=== PATIENT | male | born 1980 | race Caucasian/White ===

== ENCOUNTER 2016-06-28 04:37 | Inpatient (IN) | payer MEDICAID ==
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
--- NOTE | ~2016-06-28 | PN ---
Unit #: [id number] #: [id number] Patient: DEMI NGUYEN [id number] [facility] [address] [place] [address] [id number] I MR#: [id number] NAME: DEMI NGUYEN. ROOM: P122 Age: 36 Sex: M Admission Date: 06/28/2016 : 1980 Attending Physician: Shahzad Matos M.D. Admitting Physician: Shahzad Matos M.D. Primary Care Physician: Generic Doctor Not In System [facility] PROGRESS NOTES DATE OF SERVICE: 06/29/2016 DISCUSSION Mr. Greco is a 36-year-old male, seen on 06/29/2016. The patient interviewed, chart reviewed, and obtained information from nursing staff. The patient continues to be guarded, delusional, and paranoid. The patient reports that my mission here is over. The patient reports that he is from [place]. The patient showed a scar and then said this is official scar. The patient continues to have delusion, paranoia, mood lability, and psychotic symptoms. The patient's vital signs are stable; temperature 97.3, heart rate 94, respiratory rate 18, and blood pressure 118/54. REVIEW OF SYSTEMS Complete review of systems unremarkable. MENTAL STATUS EXAMINATION General appearance, the patient dressed casually. Attention span and concentration, poor. Oriented in place. Mood and affect, labile. Speech, disorganized. Thought process; circumstantial, guarded, paranoid, grandiose, and delusions. Denied any thoughts of harming self or others, but mood lability. Recent and remote memory, poor. Insight and judgment, poor. DIAGNOSES 1. Psychosis, not otherwise specified. 2. Bipolar mood disorder, not otherwise specified. 3. Rule out schizoaffective disorder, bipolar type, rule out schizophrenia. ASSESSMENT AND PLAN Advised to continue with current medication and therapeutic protocol. We will monitor response to medication and make further adjustment of medication. Recommending at this time to increase Zyprexa to 10 mg b.i.d., Thorazine 50 mg t.i.d., and Ativan 1 mg t.i.d. If needed, consider further adjustment of medication. Dictated by... Shahzad Matos M.D. SZC/modl Unit #: [id number] #: [id number] Patient: DEMI NGUYEN Sumeet TD: 06/29/2016 17:51 JOB #: [id number] [facility] PROGRESS NOTES X Shahzad Matos MD PROGRESS NOTE
--- NOTE | ~2016-06-28 | PN ---
Unit #: [id number] #: [id number] Patient: DEMI NGUYEN [id number] [facility] [address] [place] [address] [id number] I MR#: [id number] NAME: DEMI NGUYEN. ROOM: P122 Age: 36 Sex: M Admission Date: 06/28/2016 : 1980 Attending Physician: Shahzad Matos M.D. Admitting Physician: Shahzad Matos M.D. Primary Care Physician: Generic Doctor Not In System [facility] PROGRESS NOTES DATE OF SERVICE 07/08/2016 DISCUSSION Mr. Greco is a 36-year-old male. The patient interviewed, chart reviewed. Obtained information from nursing staff. The patient was compliant, cooperative. Mood sad, dysphoric, flat affect, guarded. The patient continues to show delusion, paranoia, and mood lability, but seems to be responding well with a combination of Zyprexa and Saphris. The patient was able to sleep better last night. Compliant with medication, but still having grandiose delusions, loose association, disorganized behavior. Needing redirection. The patient reported being in [place] and wanting staff to call the police, going to give MD (1) ___ so he will not be charged. The patient still having disorganized behavior, thought process. Complete Review of Systems: Unremarkable. MENTAL STATUS EXAMINATION General Appearance: The patient well built, casually dressed. Attention span, concentration: Poor. Oriented in place and person. Mood and affect labile. Speech: Rapid. Thought process: Circumstantial, guarded. Denied any thoughts of harming self or others, delusions, paranoid, disorganized behavior, disorganized thought process. Recent and remote memory: Poor. Insight and judgment: Poor. DIAGNOSES 1. Psychosis not otherwise specified. 2. Schizophrenia, chronic, paranoid type. ASSESSMENT/PLAN Advised to continue with current medication and therapeutic protocol. We will monitor response to medication and make further adjustment of medication. Dictated by... Clyde Martins/ej TD: 07/09/2016 10:14 Unit #: [id number] #: [id number] Patient: DEMI NGUYEN JOB #: [id number] [facility] PROGRESS NOTES Page 1 of 1 X Shahzad Matos MD PROGRESS NOTE
--- NOTE | ~2016-06-28 | PN ---
Unit #: [id number] #: [id number] Patient: DEMI NGUYEN [id number] [facility] [address] [place] [address] [id number] I MR#: [id number] NAME: DEMI NGUYEN. ROOM: P122 Age: 36 Sex: M Admission Date: 06/28/2016 : 1980 Attending Physician: Shahzad Matos M.D. Admitting Physician: Shahzad Matos M.D. Primary Care Physician: Generic Doctor Not In System [facility] PROGRESS NOTES DATE OF SERVICE: 07/01/2016 DISCUSSION Mr. Greco is a 36-year-old male, seen on 07/01/2016. The patient interviewed, chart reviewed, and obtained information from nursing staff. The patient was somewhat hyperactive and impulsive. Rapid thought process. The patient was pacing in the hallway, guarded, and paranoid. Continues to have delusion and paranoia. The patient has poor insight and poor judgment. Rowe, paranoid, racing thought process, argumentative, impulsive, but compliant with medication. The patient continues to have grandiose delusions. Complete review of systems unremarkable. MENTAL STATUS EXAMINATION General appearance, the patient dressed casually. Attention span and concentration were poor. Oriented in place and person. Mood and affect, labile. Speech, rapid. Thought process; circumstantial, guarded. The patient denied any thoughts of harming self or others, but guarded, paranoid. Recent and remote memory, poor. Insight and judgment, poor. DIAGNOSES 1. Psychosis, not otherwise specified. 2. Bipolar mood disorder, not otherwise specified. 3. Rule out schizoaffective disorder, bipolar type. ASSESSMENT AND PLAN Advised to continue with current medication and therapeutic protocol. We will monitor response to medication and make further adjustment of medication if needed. Dictated by... Clyde Martins/orlando TD: 07/01/2016 18:05 JOB #: [id number] Unit #: [id number] #: [id number] Patient: DEMI NGUYEN PROGRESS NOTES X Shahzad Matos MD PROGRESS NOTE
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
--- NOTE | ~2016-06-28 | PN ---
Unit #: [id number] #: [id number] Patient: ANGUS NGUYEN [id number] [facility] [address] [place] [address] [id number] I MR#: [id number] NAME: ANGUS NGUYEN. ROOM: P122 Age: 36 Sex: M Admission Date: 06/28/2016 : 1980 Attending Physician: Shahzad Matos M.D. Admitting Physician: Shahzad Matos M.D. Primary Care Physician: Generic Doctor Not In System [facility] PROGRESS NOTES DATE 07/10/2016 DISCUSSION Mr. Angus Nguyen is a 36-year-old male, seen on 07/10/2016. The patient interviewed, chart reviewed, and obtained information from the nursing staff. The patient continues to have delusions, paranoia, mood lability, grandiose delusions. The patient became mad, angry, upset this morning, agitated, and started pacing in the hallway. The patient threatened to call the police. 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 The patient's behavior was disruptive, impulsive, aggressive, but otherwise, mostly he is compliant and cooperative. REVIEW OF SYSTEMS Complete review of systems unremarkable. MENTAL STATUS EXAMINATION General appearance: Patient dressed casually. Attention span and concentration, poor. Orientation to place. Mood and affect, labile. Speech, rapid. Thought process, circumstantial, guarded. The patient denied any thoughts of harming self or others but guarded, paranoid, delusional, grandiose delusions. Recent and remote memory, poor. Insight and judgment, poor. DIAGNOSIS Schizophrenia, chronic, paranoid type. ASSESSMENT/PLAN Advised to continue with the current medication combination with a plan to consider transition to outpatient program, if needed consider further adjustment of medication. Dictated by... Clyde Martins/laevlle TD: 07/11/2016 10:36 JOB #: [id number] Unit #: [id number] #: [id number] Patient: ANGUS NGUYEN [facility] PROGRESS NOTES Page 1 of 1 X Shahzad Matos MD PROGRESS NOTE
--- NOTE | ~2016-06-28 | PN ---
Unit #: [id number] #: [id number] Patient: ANGUS NGUYEN [id number] [facility] [address] [place] [address] [id number] I MR#: [id number] NAME: ANGUS NGUYEN. ROOM: P122 Age: 36 Sex: M Admission Date: 06/28/2016 : 1980 Attending Physician: Shahzad Matos M.D. Admitting Physician: Shahzad Matos M.D. Primary Care Physician: Generic Doctor Not In System [facility] PROGRESS NOTES DATE OF SERVICE 07/02/2016 DISCUSSION Angus Nguyen is a 36-year-old male seen on 07/02/2016. The patient interviewed, chart reviewed. Obtained information from nursing staff. The patient continues to have delusional thinking, grandiose ideation, paranoia, mood lability. Compliant with medication. No side effects from medication. The patient needed a p.r.n. medication for agitation. The patient continues to have the above-mentioned symptoms. Complete Review of Systems: Unremarkable. MENTAL STATUS EXAMINATION General Appearance: The patient dressed casually. Attention span, concentration: Poor. Orientation in place and person. Mood and affect labile. Speech: Rapid. Thought process: Circumstantial, guarded, paranoid. Delusional grandiose ideation. Recent and remote memory: Poor. Insight and judgment: Poor. DIAGNOSES 1. Psychosis not otherwise specified. 2. Bipolar mood disorder not otherwise specified. ASSESSMENT/PLAN Advised to continue with current medication and therapeutic protocol. We will monitor response to medication and make further adjustment of medication. Dictated by... Clyde Martins/ej TD: 07/03/2016 12:27 JOB #: [id number] Unit #: [id number] #: [id number] Patient: ANGUS NGUYEN [facility] PROGRESS NOTES X Shahzad Matos MD PROGRESS NOTE
--- NOTE | ~2016-06-28 | PN ---
Unit #: [id number] #: [id number] Patient: ANGUS NGUYEN [id number] [facility] [address] [place] [address] [id number] I MR#: [id number] NAME: ANGUS NGUYEN. ROOM: P122 Age: 36 Sex: M Admission Date: 06/28/2016 : 1980 Attending Physician: Shahzad Matos M.D. Admitting Physician: Shahzad Matos M.D. Primary Care Physician: Generic Doctor Not In System [facility] PROGRESS NOTES DATE 07/07/2016 DISCUSSION Angus Nguyen is a 36-year-old male seen on 07/07/2016. The patient interviewed, chart reviewed. Obtained information from nursing staff. The patient's behavior continues to be bizarre, guarded, paranoid, delusional. The patient still having paranoid delusions, mood lability, paranoia, agitation. The patient continued to perseverate on involvement with the [employer] and needing to call 911. The patient reported that he is on (1)___ operation. Complete review of systems unremarkable. MENTAL STATUS EXAMINATION General appearance, the patient dressed casually. Attention span and concentration poor. Oriented to place and person. Mood and affect was labile. Speech rapid. Thought process circumstantial, guarded, paranoid, delusional. Recent and remote memory poor. Insight and judgement poor. DIAGNOSES Schizophrenia chronic paranoid type. ASSESSMENT/PLAN Recommending at this time after reviewing all the information from his previous record that the patient responded well with the combination of Zyprexa, Klonopin and Saphris. Therefore the patient was started on Saphris sublingual 10 mg b.i.d., desyrel 200 mg at bedtime p.r.n. for sleep, Klonopin 1 mg three times day for anxiety and Zyprexa 15 mg twice daily. The patient is also on Thorazine with a plan to take him off from this medication. Continue with the inpatient programing. Monitor for side effects. Dictated by... Clyde Martins/rosanna TD: 07/08/2016 23:48 JOB #: [id number] Unit #: [id number] #: [id number] Patient: PATRICKANGUS PROGRESS NOTES Page 1 of 1 X Shahzad Matos MD PROGRESS NOTE
--- NOTE | ~2016-06-28 | PN ---
Unit #: [id number] #: [id number] Patient: ANGUS NGUYEN [id number] [facility] [address] [place] [address] [id number] I MR#: [id number] NAME: ANGUS NGUYEN. ROOM: P122 Age: 36 Sex: M Admission Date: 06/28/2016 : 1980 Attending Physician: Shahzad Matos M.D. Admitting Physician: Shahzad Matos M.D. Primary Care Physician: Generic Doctor Not In System [facility] PROGRESS NOTES DATE 07/03/2016 DISCUSSION Angus Nguyen is a 36-year-old male. Patient interviewed. Chart reviewed. Obtained information from nursing staff. Patient continues to be pacing the hallway. Also, talked to patient's dad on the phone and discussed about treatment plan. Patient was tried on different medication with the failure. Patient has been refusing to take antipsychotic. Patient was talking to himself, carry out conversation, guarded, paranoid, delusional, mood lability. Attending to internal stimuli. Complete review of system unremarkable. MENTAL STATUS EXAMINATION General appearance, patient dressed casually. Attention span, concentration poor. Oriented in place and person. Mood and affect was labile. Speech rapid. Thought process circumstantial, guarded, paranoid, delusional, mood lability. Recent and remote memory poor. Insight and judgement poor. DIAGNOSES 1. Psychosis NOS. 2. Bipolar mood disorder NOS. 3. Schizoaffective disorder. 4. Rule out schizophrenia. ASSESSMENT/PLAN Continue with the current medication and therapeutic protocol. Will monitor response to medication and make further adjustment of medication. Patient's medication recently increased. Also, consider injectable medication. Dictated by... Clyde Martins/boo TD: 07/04/2016 18:21 JOB #: [id number] Unit #: [id number] #: [id number] Patient: ANGUS NGUYEN [facility] PROGRESS NOTES X Shahzad Matos MD PROGRESS NOTE
--- NOTE | ~2016-06-28 | PN ---
Unit #: [id number] #: [id number] Patient: ANGUS NGUYEN [id number] [facility] [address] [place] [address] [id number] I MR#: [id number] NAME: ANGUS NGUYEN. ROOM: P122 Age: 36 Sex: M Admission Date: 06/28/2016 : 1980 Attending Physician: Shahzad Matos M.D. Admitting Physician: Shahzad Matos M.D. Primary Care Physician: Generic Doctor Not In System [facility] PROGRESS NOTES DATE OF SERVICE: 07/06/2016 DISCUSSION Mr. Angus Nguyen is a 36-year-old male, seen on 07/06/2016. The patient was able to sleep better, but still without behavior, grandiose delusion, pressured speech, paranoia, disorganized behavior. The patient continues to believe working for [employer], multiple grandiose delusions, attending to internal stimuli, pacing in the hallway, talking to himself, became upset when telephone privileges were taken away as the patient was calling different facilities, calling 911. Mood was irritable and angry. Complete review of systems is unremarkable. MENTAL STATUS EXAMINATION General appearance, the patient dressed casually. Attention span and concentration, poor. Oriented in place and person. Mood and affect were labile. Speech; pressured, rapid. Thought process, circumstantial. The patient denied any thoughts of harming self or others, but guarded, paranoid. Behavior as mentioned above. Disorganized behavior. Disorganized thought process. Recent and remote memory, poor. Insight and judgment, poor. DIAGNOSIS Schizophrenia, chronic paranoid type. ASSESSMENT AND PLAN Advised to continue with current medication and therapeutic protocol. We will monitor response to medication and make further adjustment of medication. Dictated by... Clyde Martins/orlando TD: 07/07/2016 11:57 JOB #: [id number] Unit #: [id number] #: [id number] Patient: ANGUS NGUYEN [facility] PROGRESS NOTES X Shahzad Matos MD PROGRESS NOTE
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
--- NOTE | ~2016-06-28 | PA ---
Unit #: [id number] #: [id number] Patient: ANGUS NGUYEN [id number] [facility] [address] [place] [address] [id number] MR#: [id number] NAME: ANGUS NGUYEN. ROOM: P122 Age: 36 Sex: M Admission Date: 06/28/2016 : 1980 Date of Assessment: 06/28/2016 Attending Physician: Shahzad Matos M.D. Admitting Physician: Shahzad Matos M.D. Primary Care Physician: Generic Doctor Not In System PSYCHIATRIC ASSESSMENT INFORMANTS The patient reliability, fair informant and chart reliability, good. CHIEF COMPLAINT On MIW, alcohol use, and bipolar disorder. HISTORY OF PRESENT ILLNESS Mr. Angus Nguyen is a 36-year-old male, who was admitted on WAW. The patient reported a history of numerous admission at [facility], [place], [facility], inpatient at [place], and [facility] and diagnosed with schizophrenia and bipolar disorder. The patient lives with his parents. The patient presented with his father, who took the MIW. History of bipolar disorder with psychotic feature. The patient has been noncompliant with medication and has been delusional and believes that he is a part of [place] and FBI and police is after him. The patient reports that he has not been sleeping. Denied any suicidal or homicidal ideation, but bizarre affect, bizarre behavior, intoxicated, tox screen negative, guarded, and paranoid and needing inpatient admission at this time for psychiatric stabilization. PAST PSYCHIATRIC HISTORY Remarkable for history of previous treatment inpatient at [facility] in 05/2014 and 09/2015, inpatient at [facility], inpatient at [facility] in 11/2015; and inpatient twice at [place]. Outpatient services through [place], [place]. FAMILY HISTORY/SOCIAL HISTORY The patient lives with his parents. Family psychiatric illness is remarkable for history of bipolar disorder in paternal grandfather. Mental illness in maternal grandfather. Both side with history of alcohol abuse. No known history of any abuse. No legal charges. MEDICAL HISTORY Unremarkable. MEDICATION HISTORY The patient is on Flonase, Lamictal, metoprolol, nicotine, olanzapine, Orajel, Saphris, Tegretol, and trazodone. ALLERGIES No known drug allergies. SUBSTANCE ABUSE HISTORY Unit #: [id number] #: [id number] Patient: ANGUS NGUYEN History of tobacco use and alcohol use. REVIEW OF SYSTEMS HEENT: Eyes, clear. Ears, nose, mouth, and throat; clear. CARDIOVASCULAR: Unremarkable. RESPIRATORY: Unremarkable. GI: Unremarkable. : Unremarkable. SKIN: Unremarkable. LYMPH NODE: Unremarkable. NEUROLOGIC: Unremarkable. ENDOCRINE: Unremarkable. HEMATOLOGIC: Unremarkable. ALLERGIC/IMMUNOLOGIC: Unremarkable. MUSCULOSKELETAL: Muscle strength and tone, no atrophy or abnormal movement. Gait normal. MENTAL STATUS EXAMINATION CONSTITUTIONAL: Measurement of vital signs; temperature 97.6, heart rate 79, respiratory rate 16, blood pressure 121/70, height 6 feet, and weight 215 pounds. GENERAL APPEARANCE: The patient dressed casually. The patient did not show any facial deformity. PSYCHIATRIC EXAMINATION Description of speech; slow. Description of thought process, circumstantial. Description of association; disorganized, guarded, paranoid, and mood lability. Please refer to HPI for detail. Description of the patient's judgment: Concerning everyday activity, poor. Social situation, poor. Concerning psychiatric condition, poor. Complete mental status examination; oriented in time and place. Attention span and concentration, poor. Language, able to name object and repeat phrases. Fund of knowledge, fair. Vocabulary, fair. Mood and affect, labile. Insight and judgment, impaired. ASSETS AND LIABILITY Assets, the patient is articulate and able to take care of his ADL. Liability, history of depression and noncompliance with medication. ADMITTING DIAGNOSES Psychiatric: Bipolar mood disorder, type 1, with psychotic feature, F31.9 and rule out substance abuse disorder. Secondary diagnosis: Deferred. Medical diagnosis: None. Stressors: Psychosocial stressors. PSYCHIATRIC PLAN AND TREATMENT GOAL AND DISCHARGE PLAN 1. Advised to admit the patient on the inpatient unit. Provide safe, supportive, and structured environment. 2. Ordered labs; CBC, CMP, UA, and UDS. 3. Precaution for aggression, self-harm, and psychosis. 4. The patient to attend all the programing, group therapy, individual therapy, and medication management. If needed, consider further adjustment of medication. The patient was started on detox protocol and Unit #: [id number] #: [id number] Patient: ANGUS NGUYEN detox monitoring. Continue with the patient's medication; Zyprexa, Catapres, and Lamictal. TREATMENT GOAL To attain euthymic mood, gain insight into his problem, and learn coping skills. DISCHARGE PLAN Plan to stabilize the patient and consider followup in outpatient program. ESTIMATED LENGTH OF STAY 5 days. Dictated by... Clyde Martins/[place] TD: 06/29/2016 13:24 JOB #: [id number] PSYCHIATRIC ASSESSMENT X Shahzad Matos MD PSYCHIATRIC ASSESSMENT
--- NOTE | ~2016-06-28 | DS ---
Unit #: [id number] #: [id number] Patient: DEMI NGUYEN [id number] [place] [address] [id number] I MR#: [id number] NAME: DEMI NGUYEN. ROOM: [facility] Age: 36 Sex: M Admission Date: 06/28/2016 : 1980 Discharge Date: 07/11/2016 Attending Physician: Shahzad Matos M.D. DISCHARGE SUMMARY REASON FOR ADMISSION Psychosis. DIAGNOSTIC STUDIES LABORATORY RESULTS: Remarkable for AST 138 and ALT 186. HOSPITAL COURSE The patient was admitted to the inpatient unit on 06/28/2016 and discharged on 07/11/2016. The patient was treated on the inpatient unit with structured milieu, expressive therapy, psychotherapy, and medication management. The patient responded well with the following medications. The patient continues to have problem with delusions and paranoia, but no aggressive behavior. Subsequently, the patient was discharged with a plan to follow up in outpatient program. DISCHARGE MEDICATIONS Tegretol 400 mg b.i.d. for mood stabilization, Catapres 0.1 mg in the morning and 0.2 mg at bedtime for hypertension, Lamictal 300 mg in the morning for mood stabilization, Thorazine 50 mg t.i.d. for psychosis, Zyprexa 50 mg b.i.d. for psychosis, Klonopin 1 mg t.i.d. for anxiety, Saphris 10 mg b.i.d. for psychosis, and Desyrel 200 mg at bedtime for sleep. DISCHARGE DIAGNOSES Psychiatric: Schizophrenia, chronic paranoid type, F20.0. Secondary diagnosis: Deferred. Medical diagnosis: None. Stressors: Psychosocial stressors. DISCHARGE INSTRUCTIONS The patient to follow up in outpatient clinic as per medical social consultant. CONDITION ON DISCHARGE The patient was pleasant and cooperative. Denied any psychotic symptom or any suicidal ideation. PROGNOSIS Guarded. Unit #: [id number] #: [id number] Patient: DEMI NGUYEN DIET AND ACTIVITY As tolerated. Dictated by... Shahzad Matos M.D. MICHELE/or[place] TD: 07/11/2016 20:00 JOB #: [id number] DISCHARGE SUMMARY Page 1 of 1 X Shahzad Matos MD DISCHARGE SUMMARY
--- NOTE | ~2016-06-28 | PN ---
Unit #: [id number] #: [id number] Patient: ANGUS NGUYEN [id number] [facility] [address] [place] [address] [id number] I MR#: [id number] NAME: ANGUS NGUYEN. ROOM: P122 Age: 36 Sex: M Admission Date: 06/28/2016 : 1980 Attending Physician: Shahzad Matos M.D. Admitting Physician: Shahzad Matos M.D. Primary Care Physician: Generic Doctor Not In System [facility] PROGRESS NOTES DATE 06/30/2016 DISCUSSION Angus is a 36-year-old male seen on 06/30/2016. Patient interviewed. Chart reviewed. Obtained information from nursing staff. Patient continues to show delusions, paranoia, grandiose delusion. Patient feels that he is employed by [employer] and he gets pay check from them. Patient reported that he is on a mission, still having grandiose delusion, paranoia, mood lability, rapid thought process. Patient was compliant with medication. Vital signs 97.6, 113, 135/45. Still withdrawn, isolative. Complete review of system unremarkable. MENTAL STATUS EXAMINATION General appearance, patient dressed casually. Attention span, concentration poor. Oriented in place and person. Mood and affect was labile. Speech rapid. Thought process circumstantial. Association guarded, paranoid, delusional. Denied any thoughts of harming self or others but mood was labile. Recent and remote memory poor. Insight and judgement poor. DIAGNOSES 1. Psychosis NOS. 2. Bipolar mood disorder NOS. ASSESSMENT/PLAN Advised to continue with current medication and therapeutic protocol. If needed, consider further adjustment of medication. We will closely monitor patient's mood and behavior on the inpatient unit. Dictated by... Clyde Martins/boo TD: 07/01/2016 20:20 JOB #: [id number] Unit #: [id number] #: [id number] Patient: ANGUS NGUYEN [facility] PROGRESS NOTES X Shahzad Matos MD X PROGRESS NOTE
--- NOTE | ~2016-06-28 | PN ---
Unit #: [id number] #: [id number] Patient: ANGUS NGUYEN [id number] [facility] [address] [place] [address] [id number] I MR#: [id number] NAME: ANGUS NGUYEN. ROOM: P122 Age: 36 Sex: M Admission Date: 06/28/2016 : 1980 Attending Physician: Shahzad Matos M.D. Admitting Physician: Shahzad Matos M.D. Primary Care Physician: Generic Doctor Not In System [facility] PROGRESS NOTES DATE OF SERVICE: 07/04/2016 DISCUSSION Angus Nguyen is a 36-year-old male, seen on 07/04/2016. The patient interviewed, chart reviewed, and obtained information from nursing staff. The patient was compliant with medication this morning. The patient's mood was labile, delusional, paranoid, but seems somewhat calmer. The patient reports from [facility] reviewed. The patient tolerating medication fairly well. REVIEW OF SYSTEMS Complete review of systems unremarkable. MENTAL STATUS EXAMINATION General appearance, the patient dressed casually. Attention span and concentration, poor. Oriented in place and person. Mood and affect, labile. Speech, rapid. Thought process, circumstantial, guarded paranoid but denied any thoughts of harming self or others, but delusional. Recent and remote memory, poor. Insight and judgment, poor. DIAGNOSIS Schizophrenia, chronic, paranoid type. ASSESSMENT AND PLAN Advised to continue with current medication and therapeutic protocol. We will monitor response to medication and make further adjustment of medication. Dictated by... Clyde Martins/[place] TD: 07/05/2016 07:08 JOB #: [id number] Unit #: [id number] #: [id number] Patient: ANGUS NGUYEN [facility] PROGRESS NOTES X Shahzad Matos MD PROGRESS NOTE
--- NOTE | ~2016-06-28 | HP ---
Unit #: [id number] #: [id number] Patient: ANGUS NGUYEN [id number] [place] [address] [id number] MR#: [id number] NAME: ANGUS NGUYEN. ROOM: P122 Age: 36 Sex: M Admission Date: 06/28/2016 : 1980 Attending Physician: Shahzad Matos M.D. Admitting Physician: Shahzad Matos M.D. Primary Care Physician: Generic Doctor Not In System HISTORY AND PHYSICAL HISTORY OF PRESENT ILLNESS Angus is a 36-year-old male admitted on 06/28/2016, to [address] [place] [address] for detox from alcohol, bipolar disorder and delusions. PAST MEDICAL HISTORY Attention deficit hyperactivity disorder and insomnia. PAST SURGICAL HISTORY Right forearm I and D. SOCIAL HISTORY The patient is currently single and living with his parents. He smokes about 5 cigarettes daily and binge drinks beer daily. Denies any illicit drug use. FAMILY HISTORY Noncontributory. REVIEW OF SYSTEMS CONSTITUTIONAL: No fever or chills. HEENT: Denies any sore throat, ear pain or runny nose. CARDIOVASCULAR: Denies chest pain, irregular heart rhythm or palpitations. CHEST: Denies shortness of breath or cough. No hemoptysis. GASTROINTESTINAL: Denies nausea, vomiting, diarrhea or chronic constipation. ENDOCRINE: Denies history of increased thirst or urination. No recent significant weight loss or gain. GENITOURINARY: Denies dysuria, frequency, or hematuria. SKIN: Denies any rashes. HEMATOLOGIC: Denies history of increased bleeding or bruising. MUSCULOSKELETAL: Denies any hot, swollen joints. No generalized muscle pain. NEUROLOGIC: Denies problems with vision or speech. No frequent, severe headaches. No numbness, tingling or weakness in any extremities. Denies loss of bladder or bowel control. CURRENT MEDICATIONS 1. Mirtazapine 2. Carbamazepine 3. Clonidine 4. Lamictal ALLERGIES Unit #: [id number] #: [id number] Patient: ANGUS NGUYEN Haldol, Geodon, Ambien, Seroquel, Risperdal PHYSICAL EXAMINATION GENERAL: Alert and oriented, no acute distress. VITAL SIGNS: Blood pressure 113/80, heart rate 63, temperature 97.6. HEIGHT: 6 feet 0 inches WEIGHT: 215 pounds SKIN: Warm and dry without rash or lesion. HEENT: Normocephalic. TMs not viewed. Oral and nasal passages clear. Conjunctivae clear. PERRLA. EOMs intact. NECK: Supple without lymphadenopathy or thyromegaly. HEART: Regular rate and rhythm without murmur. LUNGS: Clear. ABDOMEN: Soft, nontender, without masses or hepatosplenomegaly. : Not done. EXTREMITIES: No evidence of cyanosis, clubbing or edema. Moves all without focal deficit. NEUROLOGICAL: Grossly within normal limits. Cranial Nerves: II: Visual kuo are intact. III, IV AND : Extraocular movements are intact. Pupils are equal, round and reactive to light. V: Facial sensation is grossly normal. VII: Facial movements and expression are normal. VIII: Auditory acuity grossly intact. IX, X: Uvula is midline. Phonation is normal. XI: Patient shrugs shoulders and turns head normally. XII: Tongue protrudes in the midline. Sensory and Motor Function: Sensory and motor sensation is grossly normal. Motor: moves all extremities well. Coordination: Gait is normal. Deep Tendon Reflexes: Intact. MEDICAL ASSESSMENT AND PLAN Psychiatric admission. RECOMMENDATIONS 1. Psychiatric, per psychiatrist. 2. I see no contraindications to participating in facility's activities. MEDICAL PROGNOSIS Good. MEDICAL CONDITION Stable. Dictated by... Kayla Richmond/opal TD: 06/29/2016 08:16 JOB #: [id number] Unit #: [id number] #: [id number] Patient: ANGUS GNUYEN HISTORY AND PHYSICAL X NOVA MILLAN APRN HISTORY AND PHYSICAL
--- NOTE | ~2016-06-28 | PN ---
Unit #: [id number] #: [id number] Patient: ANGUS NGUYEN [id number] [facility] [address] [place] [address] [id number] I MR#: [id number] NAME: ANGUS NGUYEN. ROOM: P122 Age: 36 Sex: M Admission Date: 06/28/2016 : 1980 Attending Physician: Shahzad Matos M.D. Admitting Physician: Shahzad Matos M.D. Primary Care Physician: Generic Doctor Not In System [facility] PROGRESS NOTES DATE 07/05/2016 DISCUSSION Angus Nguyen is a 36-year-old male seen on 07/05/2016. The patient interviewed, chart reviewed. Obtained information from nursing staff. The patient was compliant and cooperative. Mood sad, dysphoric, flat affect. The patient was guarded, paranoid, delusional. Complete review of systems unremarkable. MENTAL STATUS EXAMINATION General appearance, the patient dressed casually. Attention span and concentration poor. Oriented to place. Mood and affect labile. Speech rapid. Thought process circumstantial guarded, paranoid, delusional, mood lability. Recent and remote memory poor. Insight and judgement poor. DIAGNOSES Schizophrenia chronic paranoid type ASSESSMENT/PLAN Advise to continue with current medication and therapeutic protocol. We will monitor response to medication and make further adjustment of medication. Dictated by... Clyde Martins/rosanna TD: 07/07/2016 02:48 JOB #: [id number] [facility] PROGRESS NOTES X Shahzad Matos MD PROGRESS NOTE
--- NOTE | ~2016-06-28 | PN ---
Unit #: [id number] #: [id number] Patient: DEMI NGUYEN [id number] [facility] [address] [place] [address] [id number] I MR#: [id number] NAME: DEMI NGUYEN. ROOM: P122 Age: 36 Sex: M Admission Date: 06/28/2016 : 1980 Attending Physician: Shahzad Matos M.D. Admitting Physician: Shahzad Matos M.D. Primary Care Physician: Generic Doctor Not In System [facility] PROGRESS NOTES DATE 07/09/2016 DISCUSSION Mr. Greco is a 36-year-old male seen on 07/09/2016. Patient interviewed. Chart reviewed. Obtained information from nursing staff. Patient continues to be delusional, paranoid, guarded but no aggressive behavior. Patient carrying out conversation by himself, very delusional, grandiose delusions, disorganized thought process, disorganized behavior but no aggression. Compliant with medication. Complete review of system unremarkable. MENTAL STATUS EXAMINATION General appearance, patient tall, well-built. Attention span, concentration fair. Oriented in place and person. Mood and affect was labile. Speech rapid. Thought process circumstantial. Association, patient guarded, paranoid but denied any thoughts of harming self or others. Recent and remote memory poor. Insight and judgement poor. DIAGNOSIS Schizophrenia, chronic paranoid type. ASSESSMENT/PLAN Advised to continue with current medication and therapeutic protocol. Will monitor response to medication and make further adjustment of medication. Dictated by... Clyde Martins/boo TD: 07/10/2016 21:18 JOB #: [id number] Unit #: [id number] #: [id number] Patient: DEMI NGUYEN [facility] PROGRESS NOTES Page 1 of 1 X Shahzad Matos MD X PROGRESS NOTE
[2016-06-29 11:58] LABS: THYROID STIMULATING HORMONE 0.47 uIU/ml (0.34-5.60)
[2016-06-29 12:03] LABS: ALBUMIN SERUM 4.3 g/dL (3.5-5.0); ALKALINE PHOSPHATASE 58 U/L (32-92); ALT (SGPT) 186 U/L (10-40); AST (SGOT) 138 U/L (10-42); BILIRUBIN,TOTAL 0.2 mg/dL (0.2-2.0); BLOOD UREA NITROGEN 13 mg/dL (9-23); BUN/CREATININE RATIO 14.44; CALCIUM SERUM 8.9 mg/dL (8.4-10.2); CARBON DIOXIDE 30 mmol/L (22-31); CHLORIDE 100 mmol/L (100-111); CREATININE SERUM 0.9 mg/dL (0.6-1.4); GLOM FILT RATE Estimated ABOVE60 mL/min (>60); GLUCOSE FASTING 88 mg/dL (70-110); POTASSIUM 4.6 mmol/L (3.5-5.1); PROTEIN TOTAL SERUM 6.8 g/dL (6.0-8.3); SODIUM 138 mmol/L (135-145)
[2016-06-29 12:05] LABS: FREE THYROXIN (T4) 0.68 ng/dL (0.58-1.64)
== END 2016-07-11 14:15 | disposition home or self-care (01) | DRG 885 ==
LOC: P1S 04:37 → POF 06-30 14:22 → P1S 06-30 14:28
PROVIDERS: Psychiatry & Neurology Psychiatry
PROC: 3E0234Z Introduction of Serum, Toxoid and Vaccine into Muscle, Percutaneous Approach (ICD-10-PCS; principal; 2016-06-28)
DX: F20.0 Paranoid schizophrenia (principal); Z91.19 Patient's noncompliance with other medical treatment and regimen; S01.111A Laceration without foreign body of right eyelid and periocular area, initial encounter; F17.210 Nicotine dependence, cigarettes, uncomplicated; Z23 Encounter for immunization
CPT/HCPCS: 80053; 84439; 84443; 86592; 90688; J1200; J2060; J3230